=== PATIENT | male | born 1990 | race Two or more races ===

== ENCOUNTER 2018-08-19 13:29 | Emergency (ER) | payer OTHER ==
[~2018-08-19] VITALS: Ht 193 cm; Wt 149.7 kg
[2018-08-19] MEDS ORDERED: COZAAR100 MG PO (14:31)
[2018-08-19] MEDS ORDERED: CIPRO500 MG PO ×2 (14:53→14:54)
[2018-08-19] MEDS ORDERED: FLAGYL500MG PO ×2 (14:53→14:54)
[2018-08-19] MEDS ORDERED: KETO10TA2 PO (14:55)
== END 2018-08-19 20:12 | disposition home or self-care (01) ==
LOC: ER 13:29
DX: K61.0 Anal abscess (principal)